=== PATIENT | female | born 1965 | race Caucasian/White ===

== ENCOUNTER 2017-04-18 10:07 | Emergency (ER) | payer MEDICAID ==
--- NOTE | 2017-04-18 10:22 | EDM.PDOC ---
ED HPI GENERAL MEDICAL PROBLEM - General Chief Complaint: Upper Extremity Injury/Pain Stated Complaint: shoulder pain Time Seen by Provider: 04/18/17 10:21 Source of Information: Reports: Patient History Limitations: Reports: No Limitations - History of Present Illness INITIAL COMMENTS - FREE TEXT/NARRATIVE: 51-year-old female presents to the ED in a very anxious state. She states that she developed right sided shoulder pain for the last 3 days. She can still lay on the side. Movement is normal is constant aching burning discomfort in the distribution of the shoulder particular a posterior laterally. Radiate down her arm. No known injuries or falls. No previous right-sided chest shoulder surgery. Eyes pain in her cervical spine or neck. She has a known coronary disease and has [address] since 2011. She was on Plavix for 2 years and now discontinued. Uses aspirin a baby 81 mg when necessary. She is still taking metoprolol and atorvastatin. She states she was quite nauseated and unable TE to drink much the last 2 days. She's dizzy and lightheaded when she stands up. Again is very anxious on initial exam. ECG done by triage nurse shows sinus tachycardia at 1 26/m. Probable left atrial enlargement right axis deviation of 105. The baseline is wondering all over the page and I'm not able to utilize the ST segments but I do not see any defined ischemia. There is a Q-wave in V1 and near Q-wave in V2 suggesting an old anteroseptal myocardial infarction. Does have a chronic low back pain problem and is on gabapentin for this. Onset: Sudden Onset Date: 04/15/17 Duration: Day(s):, Constant Location: Reports: Upper Extremity, Right (Right posterior lateral shoulder pain.) Quality: Reports: Ache, Burning, Stabbing Severity: Severe (Rates pain as 8 or 9 out of 10. Has caused her to break out in a sweat.) Improves with: Reports: None Worsens with: Reports: None Context: Reports: Other (Spontaneous occurrence). Denies: Activity, Exercise, Lifting, Sick Contact, Trauma Associated Symptoms: Reports: Cough, Diaphoresis, Malaise (When the pain is severe she breaks out in a sweat.), Nausea/Vomiting, Weakness (Yesterday 3 times. None today.). Denies: Chest Pain, cough w sputum (Mild cough. 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 (see below) (None.) Right Shoulder Pain Score (Numeric/FACES): 4 - Related Data Allergies Allergy/AdvReac Type Severity Reaction Status Date / Time No Known Allergies Allergy Verified 04/18/17 10:13 Home Meds: Home Meds Gabapentin [Neurontin] 0 mg PO TID 04/18/17 [History] Meloxicam 15 mg PO DAILY #12 tablet 04/18/17 [Rx] Metoprolol Tartrate 25 mg PO DAILY 04/18/17 [History] Ondansetron [Zofran ODT] 4 mg PO Q6H PRN #10 tab.dis 04/18/17 [Rx] atorvaSTATin [Lipitor] 20 mg PO DAILY 04/18/17 [History] oxyCODONE HCl/Acetaminophen [Percocet 5-325 mg Tablet] 1 - 2 each PO Q4H PRN # 16 tablet 04/18/17 [Rx] Past Medical History Cardiovascular History: Reports: CAD, High Cholesterol, Hypertension, [place] ( Anteroseptal), Stents (Has [address] since 2011.) Respiratory History: Reports: COPD (Mild COPD) Musculoskeletal History: Reports: Back Pain, Chronic, Osteoarthritis, Osteoporosis Social & Family History - Tobacco Use Smoking Status *Q: Current Every Day Smoker Tobacco Use Within Last Twelve Months: Cigarettes (Currently down to 5 cigarettes a day. But does have a [id number] history.) - Alcohol Use Alcohol Use History: Yes Days Per Week of Alcohol Use: 2 - Living Situation & Occupation Occupation: Unemployed ED ROS GENERAL - Review of Systems Review Of Systems: See Below Constitutional: Reports: Weakness, Fatigue, Decreased Appetite. Denies: Fever, Chills, Weight Loss HEENT: Reports: No Symptoms Respiratory: Reports: Shortness of Breath (Mild.) Cardiovascular: Reports: Chest Pain (Right upper anterior shoulder pain more than chest.), Blood Pressure Problem (She is aware of her heart racing in her chest. Hypertension), Palpitations Endocrine: Reports: Fatigue GI/Abdominal: Reports: Constipation, Nausea, Vomiting (Vomited 3 times yesterday. Remains nauseated this morning with no vomiting. She believes the pain is causing the nausea and vomiting.) : Reports: No Symptoms (Occasional problems) Musculoskeletal: Reports: Back Pain (Chronic low back pain. On gabapentin for this.) Skin: Reports: No Symptoms Neurological: Reports: Dizziness, Difficulty Walking (Generalized weakness.), Weakness. Denies: Trouble Speaking, Change in Speech, Gait Disturbance Psychiatric: Reports: Anxiety Hematologic/Lymphatic: Reports: No Symptoms Immunologic: Reports: No Symptoms ED EXAM,LOWER BACK PAIN/INJURY - Physical Exam Exam: See Below Exam Limited By: No Limitations General Appearance: Alert, Anxious, Moderate Distress Eye Exam: Bilateral Eye: Normal Inspection Ears: Normal External Exam, Normal TMs Throat/Mouth: Normal Inspection, Normal Oropharynx, Other Head: Atraumatic, Normocephalic Neck: Normal Inspection, Supple, Non-Tender, Full Range of Motion. No: Lymphadenopathy (L), Lymphadenopathy (R) Respiratory/Chest: No Respiratory Distress, Lungs Clear, Normal Breath Sounds, No Accessory Muscle Use Cardiovascular: Normal Peripheral Pulses, No Edema (Sinus tachycardia on the monitor at 1 26/m.), No Gallop, No Murmur, No Rub, Tachycardia GI/Abdominal: Normal Bowel Sounds, Soft, Non-Tender, No Organomegaly, No Distention, Other (Slight tympany to percussion epigastrium compatible with mild aerophagia.) Back Exam: Decreased Range of Motion, Other (She has some overlying muscle spasm on the right paraspinal musculature with point tenderness over T6 rib head. Suspect rib head subluxation.). No: CVA Tenderness (L), CVA Tenderness (R ) Extremities: Normal Inspection, Normal Range of Motion, Non-Tender, No Pedal Edema, Normal Capillary Refill, Other (Good pulses to her right wrist. She has full unopposed range of motion of the entire shoulder with full range of motion and no evidence of rotator cuff weakness.) Neurological: Alert, Normal Mood/Affect, Normal Dorsiflexion, CN II-XII Intact, Normal Plantar Flexion, Normal Reflexes, Oriented x 3 Psychiatric: Anxious Skin Exam: Warm, Dry, Intact, Normal Color, No Rash EKG INTERPRETATION EKG Date: 04/18/17 Time: 10:15 Rhythm: Other Rate (Beats/Min): 125 Oral: RAD-Right Oral Deviation (105) P-Wave: Enlarged (Consider left atrial hypertrophy) QRS: Other (There is a Q-wave in V1 and near Q-wave in V2 consider old anteroseptal myocardial infarction) ST-T: Other (Wondering baseline with no obvious evidence of ischemia.) QT: Normal EKG Interpretation Comments: Abnormal ECG Course - Vital Signs Last Recorded V/S: Last Vital Signs Temp 36.6 C 04/18/17 10:10 Pulse 97 04/18/17 14:00 Resp 16 04/18/17 14:00 BP 118/86 04/18/17 14:00 Pulse Ox 98 04/18/17 14:00 - Orders/Labs/Meds Labs: Laboratory Tests 04/18/17 04/18/17 04/18/17 Range/Units 10:16 10:16 10:16 WBC 7.40 (3.98-10.04) K/mm3 RBC 5.01 (3.98-5.22) M/mm3 Hgb 16.3 H (11.2-15.7) gm/L Hct 47.3 H (34.1-44.9) % MCV 94.4 (79.4-94.8) fl MCH 32.5 H (25.6-32.2) pg MCHC 34.5 (32.2-35.5) g/dl RDW Std Deviation 45.5 (36.4-46.3) fL Plt Count 284 (182-369) K/mm3 MPV 11.5 (9.4-12.3) fl Neutrophils % (Manual) 87 H (40-60) % Band Neutrophils % 0 (0-10) % Lymphocytes % (Manual) 11 L (20-40) % Atypical Lymphs % 0 % Immat Monocytes % (Man) 0 Monocytes % (Manual) 2 (2-10) % Eosinophils % (Manual) 0 L (0.7-5.8) % Basophils % (Manual) 0 L (0.1-1.2) Metamyelocytes % 0 Myelocytes % 0 Promyelocytes % 0 Blast Cells % 0 Plasma Cell % (Manual) 0 Nucleated RBCs 0.0 % Platelet Estimate Adequate RBC Morph Comment Normal D-Dimer, Quantitative 0.26 (0.19-0.59) mg/L Sodium 133 L (136-145) mEq/L Potassium 3.9 (3.5-5.1) mEq/L Chloride 98 (98-107) mEq/L Carbon Dioxide 20 L (21-32) mEq/L Anion Gap 18.9 H (5-15) BUN 22 H (7-18) mg/dL Creatinine 1.3 H (0.55-1.02) mg/dL Est Cr Clr Drug Dosing 51.06 mL/min Estimated GFR (MDRD) 43 (>60) mL/min BUN/Creatinine Ratio 16.9 (14-18) Glucose 183 H (74-106) mg/dL Calcium 9.8 (8.5-10.1) mg/dL Total Bilirubin 0.7 (0.2-1.0) mg/dL AST 28 (15-37) U/L ALT 29 (14-59) U/L Alkaline Phosphatase 71 (46-116) U/L CK-MB (CK-2) 1.6 (0-3.6) ng/ml Troponin I < 0.017 (0.00-0.056) ng/mL Total Protein 8.9 H (6.4-8.2) g/dl Albumin 4.2 (3.4-5.0) g/dl Globulin 4.7 gm/dL Albumin/Globulin Ratio 0.9 L (1-2) Urine Opiates Screen (NEGATIVE) Ur Buprenorphine Scrn (NEGATIVE) Ur Oxycodone Screen (NEGATIVE) Urine Methadone Screen (NEGATIVE) Ur Propoxyphene Screen (NEGATIVE) Ur Barbiturates Screen (NEGATIVE) Ur Tricyclics Screen (NEGATIVE) Ur Phencyclidine Scrn (NEGATIVE) Ur Amphetamine Screen (NEGATIVE) U Methamphetamines Scrn (NEGATIVE) U Benzodiazepines Scrn (NEGATIVE) U Cocaine Metab Screen (NEGATIVE) U Marijuana (THC) Screen (NEGATIVE) 04/18/17 Range/Units 12:20 WBC (3.98-10.04) K/mm3 RBC (3.98-5.22) M/mm3 Hgb (11.2-15.7) gm/L Hct (34.1-44.9) % MCV (79.4-94.8) fl MCH (25.6-32.2) pg MCHC (32.2-35.5) g/dl RDW Std Deviation (36.4-46.3) fL Plt Count (182-369) K/mm3 MPV (9.4-12.3) fl Neutrophils % (Manual) (40-60) % Band Neutrophils % (0-10) % Lymphocytes % (Manual) (20-40) % Atypical Lymphs % % Immat Monocytes % (Man) Monocytes % (Manual) (2-10) % Eosinophils % (Manual) (0.7-5.8) % Basophils % (Manual) (0.1-1.2) Metamyelocytes % Myelocytes % Promyelocytes % Blast Cells % Plasma Cell % (Manual) Nucleated RBCs % Platelet Estimate RBC Morph Comment D-Dimer, Quantitative (0.19-0.59) mg/L Sodium (136-145) mEq/L Potassium (3.5-5.1) mEq/L Chloride (98-107) mEq/L Carbon Dioxide (21-32) mEq/L Anion Gap (5-15) BUN (7-18) mg/dL Creatinine (0.55-1.02) mg/dL Est Cr Clr Drug Dosing mL/min Estimated GFR (MDRD) (>60) mL/min BUN/Creatinine Ratio (14-18) Glucose (74-106) mg/dL Calcium (8.5-10.1) mg/dL Total Bilirubin (0.2-1.0) mg/dL AST (15-37) U/L ALT (14-59) U/L Alkaline Phosphatase (46-116) U/L CK-MB (CK-2) (0-3.6) ng/ml Troponin I (0.00-0.056) ng/mL Total Protein (6.4-8.2) g/dl Albumin (3.4-5.0) g/dl Globulin gm/dL Albumin/Globulin Ratio (1-2) Urine Opiates Screen Presumptive positive H (NEGATIVE) Ur Buprenorphine Scrn Negative (NEGATIVE) Ur Oxycodone Screen Negative (NEGATIVE) Urine Methadone Screen Negative (NEGATIVE) Ur Propoxyphene Screen Negative (NEGATIVE) Ur Barbiturates Screen Negative (NEGATIVE) Ur Tricyclics Screen Negative (NEGATIVE) Ur Phencyclidine Scrn Negative (NEGATIVE) Ur Amphetamine Screen Negative (NEGATIVE) U Methamphetamines Scrn Negative (NEGATIVE) U Benzodiazepines Scrn Negative (NEGATIVE) U Cocaine Metab Screen Negative (NEGATIVE) U Marijuana (THC) Screen Presumptive positive H (NEGATIVE) Meds: Medications Discontinued Medications Generic Name Dose Route Start Last Admin Trade Name Freq PRN Reason Stop Dose Admin Hydromorphone HCl 0.5 mg 04/18/17 10:33 04/18/17 11:40 Dilaudid IVPUSH 04/18/17 10:34 0.5 mg ONETIME ONE Administration Dextrose/Sodium Chloride 1,000 mls @ 999 mls/hr 04/18/17 10:45 04/18/17 11:35 Dextrose 5%-Normal Saline IV 999 mls/hr ASDIRECTED TANIA Administration Lactated Ringer's 1,000 mls @ 999 mls/hr 04/18/17 13:00 04/18/17 12:48 Ringers, Lactated IV 999 mls/hr ASDIRECTED TANIA Administration Ketorolac Tromethamine 30 mg 04/18/17 10:45 04/18/17 11:38 Toradol IVPUSH 30 mg ONETIME TANIA Administration Ketorolac Tromethamine Confirm 04/18/17 11:32 04/18/17 11:37 Toradol Administered 04/18/17 11:33 Not Given Dose 30 mg .ROUTE .STK-MED ONE Lorazepam 0.5 mg 04/18/17 10:34 04/18/17 11:36 Ativan IVPUSH 04/18/17 10:35 0.5 mg ONETIME ONE Administration Metoclopramide HCl 7.5 mg 04/18/17 10:33 04/18/17 11:33 Reglan IVPUSH 04/18/17 10:34 7.5 mg ONETIME ONE Administration - Radiology Interpretation Free Text/Narrative:: 51-year-old female presents to the ED with severe pain in her right shoulder without any decrease in range of motion. No shingles rash evident. She has no hyperparesthesia to light touch. Cause of pain is unclear. She states it bad enough to make her have nausea and vomiting. She does present with a sinus tachycardia of 1 25/m. She hasn't been able to keep anything down yesterday and she has been yet today. Nausea vomiting 3 yesterday. She states it's the pain that is causing her to break out in a sweat. Question whether or not she's been on chronic pain medicine and is ran out and is showing some signs of withdrawal. Plan IV D5 normal saline at open. Given Dilaudid 0.5 mg IV with Ativan 0.5 mg IV and Reglan 7.5 mg IV with Toradol 30 mg IV. Routine labs and urine drug screen will be obtained. One view chest x-ray and right shoulder x- rays ordered. - Re-Assessments/Exams Free Text/Narrative Re-Assessment/Exam: 04/18/17 11:14 chest x-ray one view is normal. There is no evidence of a Pancoast tumor to cause referred pain to her right shoulder. She's had been a smoker for 40 pack years. Similarly x-rays of the right shoulder-- 3 views reveals mild degenerative changes at the acromioclavicular joint and mild calcification in the supraspinatus tendon. 04/18/17 11:47 lab work shows a white count of 7.40 with a left shift of 87% neutrophils. Hemoglobin is 16.3 hematocrit is 47.3 suggesting some degree of hemoconcentration. Platelet count is 284,000. D-dimer was normal at 0.26. Sodium 133 potassium 3.9. Toward 98 bicarbonate 20. Anion gap is elevated 18.9. Creatinine is 1.3 be when his 22. Glucose is 183. CK-MB fraction is 1.6 troponin is less than 0.017. Therefore other than a metabolic acidosis which we feel is secondary to not eating for 2 days with associated nausea vomiting a can find no etiology for her right shoulder pain. 04/18/17 11:54 reexamination reveals no evidence of a cervical disc that would refer the pain to her right shoulder. She's been vomiting for 2 days and I don' t have a good explanation for this either. She denies any significant alcohol use. She usually has a beer or 2 on Sundays watching football. Currently on gabapentin 400 mg 3 times a day. Apparently she was on some other medication that shut down her kidneys. She has not used any narcotics for a long period of time. She was advised that she'll need at least a liter and a half to 2 L of fluid to correct her metabolic acidosis. She is and I will allow her to have water at this time. 04/18/17 12:49 she has completed her first liter of IV fluids will hang second liter of lactated Ringer's at open. Departure - Departure Time of Disposition: 13:52 Disposition: Home, Self-Care 01 Condition: Fair Clinical Impression: Diffuse pain in right upper extremity, Dehydration, Calcific tendinitis, right upper arm Nausea and vomiting Qualifiers: Vomiting type: bilious vomiting Qualified Code(s): R11.14 - Bilious vomiting - Discharge Information Prescriptions: Meloxicam 15 mg PO DAILY #12 tablet Ondansetron [Zofran ODT] 4 mg PO Q6H PRN #10 tab.dis PRN Reason: Nausea and vomiting oxyCODONE HCl/Acetaminophen [Percocet 5-325 mg Tablet] 1 - 2 each PO Q4H PRN # 16 tablet PRN Reason: pain relief. Instructions: Nausea, Adult, Dehydration, Adult, [id number] Referrals: PCP,Not In Area [Primary Care Provider] - Forms: ED Department Discharge Additional Instructions: Evaluation in the emergency room today in regards to severe pain in the right upper shoulder area. Full unopposed range of motion of the shoulders appreciated with no obvious source for the pain. No evidence of neurogenic pain being referred from the neck. Watch out for the development of a rash characteristic of shingles in the next 2-3 days. Often pain will show up for 4- 5 days before the rash shows up. If this occurs return to medical care for antiviral medications. Secondary problem was intractable nausea and vomiting for 2 days causing significant dehydration and metabolic acidosis. This caused you to have a elevated heart rate at 1 25/m and associated dizziness lightheadedness. This was remedied with 2 L of IV fluids. Treatment at home is to use Zofran 4 mg under the tongue every 4-6 hours necessary to relieve any further nausea or vomiting. Continue clear fluids such as Powerade or Gatorade ideally 4-5 ounces sipped per hour. This is a good rehydrating agent. Once hungry advance to crackers and toast. If tolerated may have crossed soup or turkey rice turkey noodle soup etc. Ease into a nonfatty light diet over the next few days. Suggest use of meloxicam 15 mg once daily for the next 12 days to relieve pain and inflammation in your right shoulder. May use Percocet 5/325 milligram tablets one or 2 every 4-6 hours for his pain in the shoulder. If pain in the shoulders not markedly improved in 3-5 days you need to be reviewed.
[2017-04-18] MEDS ORDERED: HYDROmorphone 0.5 MG/0.5 ML Syringe IVPUSH ONE (10:33)
[2017-04-18] MEDS ORDERED: Metoclopramide 10 MG/2 ML SDV IVPUSH ONE (10:33)
[2017-04-18] MEDS ORDERED: LORazepam 2 MG/ML MDV IVPUSH ONE (10:34)
[2017-04-18] MEDS ORDERED: Ketorolac 30 MG/ML SDV IVPUSH SCH (10:45)
[2017-04-18] MEDS ORDERED: Dextrose 5%-0.9% NaCl 1,000 ML IV SCH (10:45)
[2017-04-18] MEDS ORDERED: Ketorolac 30 MG/ML SDV ONE (11:32)
[2017-04-18] MEDS ORDERED: Lactated Ringers 1,000 ML IV SCH (13:00)
--- NOTE | 2017-04-18 14:08 | CR ---
Chest: Frontal view of the chest was obtained. Comparison: No previous chest x-ray. Heart size and mediastinum are within normal limits. Lungs are clear. Slight scoliosis is noted within the spine. Mild degenerative change is seen within the spine. Impression: 1. Incidental findings. Nothing acute is appreciated. Diagnostic code #2
--- NOTE | 2017-04-18 14:08 | CR ---
Right shoulder: Three views of the right shoulder were obtained. Comparison: No previous study. Mild degenerative change is noted within the acromioclavicular joint with joint space narrowing and mild inferior osteophytes. Glenohumeral joint appears within normal limits. Minimal calcification is seen off the greater tuberosity compatible with minimal calcific tendinitis. Mild degenerative change and scoliosis is seen within the spine. No acute fracture or other abnormality is identified. Impression: 1. Degenerative change within the acromioclavicular joint. 2. Mild findings of calcific tendinitis. Diagnostic code #2
[2017-04-18 14:37] VITALS: BP 118/86
== END 2017-04-18 14:10 | disposition home or self-care (01) ==
LOC: JD.ED 10:07
DX: M65.221 Calcific tendinitis, right upper arm (principal); E86.0 Dehydration; R11.14 Bilious vomiting; I10 Essential (primary) hypertension; I25.2 Old myocardial infarction; I25.10 Atherosclerotic heart disease of native coronary artery without angina pectoris; E78.00 Pure hypercholesterolemia, unspecified; J44.9 Chronic obstructive pulmonary disease, unspecified; M19.90 Unspecified osteoarthritis, unspecified site; M81.0 Age-related osteoporosis without current pathological fracture; F17.210 Nicotine dependence, cigarettes, uncomplicated; Z95.5 Presence of coronary angioplasty implant and graft; Z79.899 Other long term (current) drug therapy
CPT/HCPCS: 36415; 71010; 73030; 80053; 80306; 82553; 84484; 85025; 85379; 96361; 96374; 96375; 99284; J1170; J1885; J2060; J2765; J7042; J7120; 99285

== ENCOUNTER 2017-09-21 05:33 | Emergency (ER) | payer SELFPAY ==
[2017-09-21 05:46] VITALS: BP 160/98
[2017-09-21] MEDS ORDERED: Ondansetron 4 MG/2 ML SDV IVPUSH ONE (05:58)
[2017-09-21] MEDS ORDERED: Famotidine 20 MG/2 ML SDV IVPUSH ONE (05:58)
[2017-09-21] MEDS ORDERED: Sodium Chloride 0.9% 10 ML Syringe FLUSH PRN (05:58)
[2017-09-21] MEDS ORDERED: Sodium Chloride 0.9% 1,000 ML IV SCH (06:00)
--- NOTE | 2017-09-21 06:06 | EDM.PDOC ---
ED HPI GENERAL MEDICAL PROBLEM - General Chief Complaint: Chest Pain Stated Complaint: chest pain Time Seen by Provider: 09/21/17 05:46 Source of Information: Reports: Patient, RN Notes Reviewed - History of Present Illness INITIAL COMMENTS - FREE TEXT/NARRATIVE: 52-year-old lady became ill with intermittent abdominal discomfort, diarrhea 2 days ago. Had frequent episodes of watery diarrhea 2 days ago, a couple of episodes yesterday. She then started with severe nausea vomiting early this morning a few hours ago waking her up from her sleep. She also has had mid chest discomfort radiating toward her left shoulder. She continues to feel nauseated. She did feel dizzy and lightheaded with the nausea vomiting but did not pass out. She does have history of hypertension, ran out of her meds about a week ago. She has no known cardiac history but also does smoke. She states that a lot of people where she works have been ill with similar illness of vomiting and diarrhea. Left Chest Pain Score (Numeric/FACES): 7 - Related Data Allergies Allergy/AdvReac Type Severity Reaction Status Date / Time No Known Allergies Allergy Verified 09/21/17 05:46 Home Meds: Home Meds Gabapentin [Neurontin] 0 mg PO TID 04/18/17 [History] Meloxicam 15 mg PO DAILY #12 tablet 04/18/17 [Rx] Metoprolol Tartrate 25 mg PO DAILY 04/18/17 [History] Ondansetron [Zofran ODT] 4 mg PO Q6H PRN #10 tab.dis 04/18/17 [Rx] atorvaSTATin [Lipitor] 20 mg PO DAILY 04/18/17 [History] oxyCODONE HCl/Acetaminophen [Percocet 5-325 mg Tablet] 1 - 2 each PO Q4H PRN # 16 tablet 04/18/17 [Rx] Ondansetron [Zofran ODT] 4 mg PO Q6H PRN #7 tab.dis 09/21/17 [Rx] Past Medical History HEENT History: Reports: Impaired Vision Other HEENT History: wears eyeglasses, partial upper and bottom teeth. 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 Oncologic (Cancer) History: Reports: Cervix, Other (See Below) Other Oncologic History: cervical CA in early 20's. - Infectious Disease History Infectious Disease History: Reports: Chicken Pox - Past Surgical History HEENT Surgical History: Reports: Other (See Below) Other HEENT Surgeries/Procedures: broken nose, had ear drum surgery to L) ear. GI Surgical History: Reports: Colonoscopy Female Surgical History: Reports: Tubal Ligation Social & Family History - Family History Family Medical History: Noncontributory - Tobacco Use Smoking Status *Q: Current Every Day Smoker Years of Tobacco use: 40 Packs/Tins Daily: 0.5 Second Hand Smoke Exposure: No - Caffeine Use Caffeine Use: Reports: Coffee - Alcohol Use Days Per Week of Alcohol Use: 2 Number of Drinks Per Day: 3 Total Drinks Per Week: 6 - Recreational Drug Use Recreational Drug Use: Yes Drug Use in Last 12 Months: Yes Recreational Drug Type: Reports: Marijuana/Hashish - Living Situation & Occupation Occupation: Unemployed ED ROS GENERAL - Review of Systems Review Of Systems: See Below Constitutional: Reports: Chills, Diaphoresis (Mild at time of vomiting, gone). Denies: Fever HEENT: Reports: Other (Mild feels Strine). Denies: Throat Pain Respiratory: Denies: Shortness of Breath, Wheezing, Cough Cardiovascular: Reports: Chest Pain (Achy discomfort left upper chest), Lightheadedness (Gone) GI/Abdominal: Reports: Abdominal Pain (Intermittent cramps upper mid abdomen), Diarrhea, Nausea, Vomiting Musculoskeletal: Reports: Shoulder Pain (Left shoulder). Denies: Arm Pain, Back Pain Skin: Denies: Rash Neurological: Reports: Dizziness. Denies: Numbness, Tingling ED EXAM, GI/ABD - Physical Exam Exam: See Below General Appearance: Alert, Mild Distress Eyes: Bilateral: Normal Appearance Throat/Mouth: Normal Inspection, Other (Oral mucosa very dry) Head: No: Facial Swelling Neck: Supple Respiratory/Chest: No Respiratory Distress, Lungs Clear, Normal Breath Sounds Cardiovascular: Tachycardia GI/Abdominal Exam: Tender (Mild tenderness upper mid abdomen). No: Guarding, Rebound Back Exam: No: CVA Tenderness (L), CVA Tenderness (R) Extremities: Normal Inspection. No: Pedal Edema, Leg Pain Neurological: Alert, Oriented, No Motor/Sensory Deficits Skin Exam: Warm, Dry, Normal Color EKG INTERPRETATION EKG Date: 09/21/17 Rhythm: NSR Rate (Beats/Min): 98 [place]: Normal P-Wave: Present QRS: Normal ST-T: Normal Course - Vital Signs Last Recorded V/S: Last Vital Signs Temp 97.3 F 09/21/17 05:40 Pulse 106 H 09/21/17 05:40 Resp 16 09/21/17 05:40 BP 160/98 H 09/21/17 05:40 Pulse Ox 98 09/21/17 05:40 - Orders/Labs/Meds Orders: Active Orders 24 hr Category Date Time Status EKG 12 Lead [EKG Documentation Completion] [RC] STAT Care 09/21/17 05:57 Active Peripheral IV Care [RC] . DIRECTED Care 09/21/17 05:58 Active Sodium Chloride 0.9% [Normal Saline] 1,000 ml Med 09/21/17 06:00 Active IV ONETIME Sodium Chloride 0.9% [Saline Flush] Med 09/21/17 05:58 Active 10 ml FLUSH ASDIRECTED PRN Peripheral IV Insertion Adult [OM.PC] Stat Oth 09/21/17 05:58 Ordered Medication Orders Sodium Chloride (Normal Saline) 1,000 mls @ 999 mls/hr IV ONETIME [facility] Last Admin: 09/21/17 06:09 Dose: 999 mls/hr Sodium Chloride (Saline Flush) 10 ml FLUSH ASDIRECTED PRN PRN Reason: Keep Vein Open Last Admin: 09/21/17 06:10 Dose: 10 ml Labs: Laboratory Tests 09/21/17 09/21/17 Range/Units 06:04 06:04 WBC 13.57 H (3.98-10.04) K/mm3 RBC 5.07 (3.98-5.22) M/mm3 Hgb 16.7 H (11.2-15.7) gm/L Hct 48.4 H (34.1-44.9) % MCV 95.5 H (79.4-94.8) fl MCH 32.9 H (25.6-32.2) pg MCHC 34.5 (32.2-35.5) g/dl RDW Std Deviation 46.9 H (36.4-46.3) fL Plt Count 284 (182-369) K/mm3 MPV 11.1 (9.4-12.3) fl Neut % (Auto) 84.7 H (34.0-71.1) % Lymph % (Auto) 9.8 L (19.3-51.7) % [place] % (Auto) 4.7 (4.7-12.5) % Eos % (Auto) 0.3 L (0.7-5.8) Baso % (Auto) 0.2 (0.1-1.2) % Neut # (Auto) 11.49 H (1.56-6.13) K/mm3 Lymph # (Auto) 1.33 (1.18-3.74) K/mm3 [place] # (Auto) 0.64 H (0.24-0.36) K/mm3 Eos # (Auto) 0.04 (0.04-0.36) K/mm3 Baso # (Auto) 0.03 (0.01-0.08) K/mm3 Manual Slide Review Abnormal smear Sodium 141 (136-145) mEq/L Potassium 4.5 (3.5-5.1) mEq/L Chloride 104 (98-107) mEq/L Carbon Dioxide 22 (21-32) mEq/L Anion Gap 19.5 H (5-15) BUN 13 (7-18) mg/dL Creatinine 0.9 (0.55-1.02) mg/dL Est Cr Clr Drug Dosing 72.92 mL/min Estimated GFR (MDRD) > 60 (>60) mL/min BUN/Creatinine Ratio 14.4 (14-18) Glucose 127 H (74-106) mg/dL Calcium 9.7 (8.5-10.1) mg/dL Total Bilirubin 0.4 (0.2-1.0) mg/dL AST 23 (15-37) U/L ALT 22 (14-59) U/L Alkaline Phosphatase 75 (46-116) U/L Troponin I < 0.017 (0.00-0.056) ng/mL Total Protein 9.0 H (6.4-8.2) g/dl Albumin 4.3 (3.4-5.0) g/dl Globulin 4.7 gm/dL Albumin/Globulin Ratio 0.9 L (1-2) Meds: Medications Generic Name Dose Route Start Last Admin Trade Name Negrito PRN Reason Stop Dose Admin Sodium Chloride 1,000 mls @ 999 mls/hr 09/21/17 06:00 09/21/17 06:09 Normal Saline IV 999 mls/hr ONETIME TANIA Administration Sodium Chloride 10 ml 09/21/17 05:58 09/21/17 06:10 Saline Flush FLUSH 10 ml ASDIRECTED PRN Administration Keep Vein Open Discontinued Medications Generic Name Dose Route Start Last Admin Trade Name Negriot PRN Reason Stop Dose Admin Famotidine 20 mg 09/21/17 05:58 09/21/17 06:11 Pepcid IVPUSH 09/21/17 05:59 20 mg ONETIME ONE Administration Ondansetron HCl 4 mg 09/21/17 05:58 09/21/17 06:11 Zofran IVPUSH 09/21/17 05:59 4 mg ONETIME ONE Administration Departure - Departure Time of Disposition: 07:02 Disposition: Home, Self-Care 01 Condition: Fair Clinical Impression: Atypical chest pain Nausea and vomiting Qualifiers: Vomiting type: bilious vomiting Qualified Code(s): R11.14 - Bilious vomiting - Discharge Information Referrals: Pascale Blum PA [Primary Care Provider] - Forms: ED Department Discharge Additional Instructions: Clear liquids until this evening, than very careful bland diet as tolerated. Avoid milk and dairy products for 2 or 3 days. Probiotic recommended 2-3 times daily for the next 5 days. Follow-up clinic if not much better within 1-2 days as expected, return to ED as needed if symptoms worsening in any way. - My Orders Last 24 Hours: My Active Orders 09/21/17 05:57 EKG 12 Lead [EKG Documentation Completion] [RC] STAT 09/21/17 05:58 Peripheral IV Care [RC] . DIRECTED Sodium Chloride 0.9% [Saline Flush] 10 ml FLUSH ASDIRECTED PRN Peripheral IV Insertion Adult [OM.PC] Stat 09/21/17 06:00 Sodium Chloride 0.9% [Normal Saline] 1,000 ml IV ONETIME - Assessment/Plan Last 24 Hours: My Active Orders 09/21/17 05:57 EKG 12 Lead [EKG Documentation Completion] [RC] STAT 09/21/17 05:58 Peripheral IV Care [RC] . DIRECTED Sodium Chloride 0.9% [Saline Flush] 10 ml FLUSH ASDIRECTED PRN Peripheral IV Insertion Adult [OM.PC] Stat 09/21/17 06:00 Sodium Chloride 0.9% [Normal Saline] 1,000 ml IV ONETIME
== END 2017-09-21 07:57 | disposition home or self-care (01) ==
LOC: JD.ED 05:33
DX: R07.89 Other chest pain (principal); R11.14 Bilious vomiting; F17.210 Nicotine dependence, cigarettes, uncomplicated; I10 Essential (primary) hypertension; E78.00 Pure hypercholesterolemia, unspecified; Z79.899 Other long term (current) drug therapy
CPT/HCPCS: 36415; 80053; 84484; 85025; 93005; 96361; 96374; 96375; 99285-25; J2405; J7040; J7050